=== PATIENT | male | born 1955 | race Caucasian/White ===

== ENCOUNTER 2017-08-30 11:52 | Inpatient (IN) ==
[2017-08-30] MEDS ORDERED: methylPREDNISolone 125 MG/2 ML VIAL IVP ONE (11:59)
[2017-08-30] MEDS ORDERED: Ipratropium/Albuterol Neb 3 ML IH ONE (11:59)
--- NOTE | 2017-08-30 11:59 | Emergency Department Note ---
Disposition Clinical Impression: Acute exacerbation of chronic obstructive airways disease Disposition: Admitted As Inpatient Condition: Fair Forms: ED Satisfaction Letter Time of Disposition: 14:33 SOB HPI - General Chief Complaint: ED Shortness of Breath/Dyspnea Stated Complaint: JUSTEN Time Seen by Provider: 08/30/17 11:58 Source: patient Limitations: no limitations Nursing Notes Reviewed: Yes Vital Signs Reviewed: Yes - History of Present Illness 62-year-old smoker history of hypertension, patient states he is not having shortness of breath for the last few days. Patient with worsening wheezing, productive cough fever chills low-grade at home. Patientshortness of breath, 2 /10 chest pain worse with deep inspiration. Pt Subjective Complaint: shortness of breath Severity: moderate Improves with: oxygen Worsens with: nothing Known history of: COPD Associated symptoms: Reports: cough, wheezing. Denies: chest pain, pain with inspiration, fever - Related Data Home Medications Medication Instructions Recorded Confirmed Albuterol Sulfate [Proair Hfa] 2 puff IH QID PRN 11/17/15 02/14/16 Alprazolam [Xanax] 2 mg PO TID 11/17/15 02/14/16 Albuterol Neb [Proventil Neb] 2.5 mg IH Q4H PRN 08/30/17 08/30/17 Budesonide/Formoterol 160/4.5 2 puff IH BID 08/30/17 08/30/17 [Symbicort 160/4.5] Allergies Allergy/AdvReac Type Severity Reaction Status Date / Time codeine AdvReac Nausea Verified 08/30/17 14:06 All systems ED: reviewed and negative except as stated. Review of Systems: As Per HPI Constitutional: Reports: fever, chills Eyes: Denies: eye pain ENT ED: Denies: ear pain Cardiovascular: Denies: chest pain, palpitations Respiratory: Reports: as per HPI, cough, dyspnea Gastrointestinal: Denies: abdominal pain, nausea Genitourinary: Denies: urgency, dysuria Musculoskeletal: Denies: back pain Integumentary: Denies: rash, abrasion Neurological: Denies: headache Psychiatric: Denies: anxiety Endocrine: Denies: fatigue Past Medical History - Past Medical History Attestation: Yes The following information was validated with the patient. Source: patient Medical history: Reports: COPD, hypertension, other Surgical history: Reports: other (Lumbar laminectomy) Psychiatric history: Reports: depression - Social History Smoking Status: Current every day smoker Smokeless Tobacco Status: No Alcohol use: Reports: none Drug use: Reports: none Physical Exam Constitutional: Exertional and conversational dyspnea,02 93% on room air Eyes: PERRLA, sclera anicteric ENT & Mouth: MMM Neck: normal inspection, neck is supple Resp: Coarse inspiratory and expiratory wheezes CV: RRR, no m/g/r GI: normal inspection, soft, no guarding or rigidity Neuro: A&O3, CNII-XII grossly intact, RAMOS Skin: on limited exam, skin intact with no rashes or lesions - General Limitations: no limitations General appearance: alert, in no apparent distress Course Course Narrative: 62-year-old male with COPD exacerbation, diffuse inspiratory and expiratory wheezes do nebs 3, Solu-Medrol, basic labs CBC BMP EKG troponin, EKG showsischemic changes, tachycardia. - Reevaluation(s) Reevaluation #1: Patient with no improvement after breathing treatment since and albuterol inhalers, still with diffuse inspiratory expiratory wheezes, admitted to Dr.Al Bui Time: 14:10 Vital Signs Temperature 98.2 F 08/30/17 11:53 Pulse Rate 91 08/30/17 11:53 Respiratory Rate 22 08/30/17 11:53 Blood Pressure 154/90 08/30/17 11:53 O2 Sat by Pulse Oximetry 95 08/30/17 11:53 Temperature 98.2 F 08/30/17 11:53 Pulse Rate 20 08/30/17 13:00 Respiratory Rate 20 08/30/17 13:23 Blood Pressure 153/81 08/30/17 13:00 O2 Sat by Pulse Oximetry 97 08/30/17 13:23 Oxygen Delivery Oxygen Delivery Room Air Shortness of Breath/Dyspnea - Differential Diagnosis Likely: acute exacerbation of chronic obstructive airways disease, congestive heart failure, pneumonia - Medical Records Medical records reviewed: Yes I reviewed the patient's medical records. - Lab Data Lab results reviewed: Yes I reviewed the patient's lab results. Result diagrams: 08/30/17 12:12 08/30/17 12:12 Lab Results 08/30/17 08/30/17 08/30/17 Range/Units 12:12 12:12 12:12 WBC 8.3 (4.3-11.1) K/mcL RBC 4.83 (4.19-5.50) M/mcL Hgb 15.0 (12.9-16.9) g/dL Hct 45.7 (37.5-50.1) % MCV 94.6 (83.0-100.0) fL MCH 31.1 (28.0-33.3) pg MCHC 32.8 (31.6-35.5) g/dL RDW 13.7 (11.5-14.5) % Plt Count 135 L (140-400) K/mcL MPV 10.8 (9.4-12.4) fL Immature Gran % 0.2 (0-4) % Seg Neutrophils % 66.0 % Lymphocytes % 23.1 % Monocytes % 7.8 % Eosinophils % 2.4 % Basophils % 0.5 % Neutrophils # 5.5 (1.6-8.9) K/mcL Lymphocytes # 1.9 (0.6-4.6) K/mcL Monocytes # 0.7 (0.0-1.3) K/mcL Eosinophils # 0.2 (0.0-0.6) K/mcL Basophils # 0.0 (0.0-0.2) K/mcL Platelet Estimate Slight Decrease L (Normal) Sodium 136 (136-145) mEq/L Potassium 3.9 (3.5-5.1) mEq/L Chloride 104 (98-107) mEq/L Carbon Dioxide 24 (23-29) mEq/L BUN 14 (8-23) mg/dL Creatinine 0.79 (0.70-1.30) mg/dL Est GFR ( Amer) > 60 (> 60) Est GFR (Non-Af Amer) > 60 (> 60) BUN/Creatinine Ratio 18 (6-26) Glucose 147 H (70-105) mg/dL Calculated Osmolality 285 (280-300) Calcium 9.4 (8.6-10.3) mg/dL Troponin I < 0.03 (< 0.04) ng/mL Specimen Rejected 08/30/17 Range/Units 13:05 WBC (4.3-11.1) K/mcL RBC (4.19-5.50) M/mcL Hgb (12.9-16.9) g/dL Hct (37.5-50.1) % MCV (83.0-100.0) fL MCH (28.0-33.3) pg MCHC (31.6-35.5) g/dL RDW (11.5-14.5) % Plt Count (140-400) K/mcL MPV (9.4-12.4) fL Immature Gran % (0-4) % Seg Neutrophils % % Lymphocytes % % Monocytes % % Eosinophils % % Basophils % % Neutrophils # (1.6-8.9) K/mcL Lymphocytes # (0.6-4.6) K/mcL Monocytes # (0.0-1.3) K/mcL Eosinophils # (0.0-0.6) K/mcL Basophils # (0.0-0.2) K/mcL Platelet Estimate (Normal) Sodium (136-145) mEq/L Potassium (3.5-5.1) mEq/L Chloride (98-107) mEq/L Carbon Dioxide (23-29) mEq/L BUN (8-23) mg/dL Creatinine (0.70-1.30) mg/dL Est GFR ( Amer) (> 60) Est GFR (Non-Af Amer) (> 60) BUN/Creatinine Ratio (6-26) Glucose (70-105) mg/dL Calculated Osmolality (280-300) Calcium (8.6-10.3) mg/dL Troponin I (< 0.04) ng/mL Specimen Rejected Hemolyzed - Radiology Data Radiology results reviewed: Yes I reviewed the patient's radiology results. Chest X-Ray 08/30/17 11:59 IMPRESSION: No evidence of acute cardiopulmonary disease. D/ / Brown Spangler MD / Brown Spangler MD Interpreting Provider: Brown Spangler MD - EKG Data EKG attestation: Yes I reviewed and interpreted this EKG. EKG shows normal: Reports: sinus rhythm Rate: Reports: normal Rhythm: Reports: NSR [place]/QRS: Reports: RBBB Interpretation: Reports: no acute changes - Core Measures AMI Core Measures Followed: No Attestation Statement - Attestation Attestation: I examined this patient and my medical decision-making was reviewed with the Resident Physician. I agree with the documented findings, disposition and treatment plan as described except to the extent set forth below. Hput-hn-rani time provided in conjunction with the resident physician Dr. Garzon Patient presents with dyspnea. He is tachypneic and visibly dyspneic on exam. He uses an albuterol inhaler at home but is not oxygen dependent. I suspect COPD
[2017-08-30 12:26] LABS: Basophils % 0.5 %; Eosinophils # 0.2 K/mcL (0.0-0.6); Eosinophils % 2.4 %; Hematocrit 45.7 % (37.5-50.1); Immature Granulocytes % 0.2 % (0-4); Lymphocytes # 1.9 K/mcL (0.6-4.6); Lymphocytes % 23.1 %; Mean Corpuscular HGB Conc 32.8 g/dL (31.6-35.5); Mean Corpuscular Hemoglobin 31.1 pg (28.0-33.3); Mean Corpuscular Volume 94.6 fL (83.0-100.0); Mean Platelet Volume 10.8 fL (9.4-12.4); Monocytes # 0.7 K/mcL (0.0-1.3); Monocytes % 7.8 %; Neutrophils # 5.5 K/mcL (1.6-8.9); Platelet Count 135 K/mcL (140-400); Red Blood Count 4.83 M/mcL (4.19-5.50); Red Cell Distribution Width 13.7 % (11.5-14.5)
[2017-08-30 12:57] LABS: Platelet Estimate Slight Decrease (Normal)
[2017-08-30 13:02] LABS: BUN/Creatinine Ratio 18 (6-26); Blood Urea Nitrogen 14 mg/dL (8-23); Calcium 9.4 mg/dL (8.6-10.3); Carbon Dioxide 24 mEq/L (23-29); Chloride 104 mEq/L (98-107); Glucose 147 mg/dL (70-105); Osmolality,Calculated 285 (280-300); Potassium 3.9 mEq/L (3.5-5.1); Sodium 136 mEq/L (136-145); eGFR For African Americans > 60 (> 60); eGFR For Non-African Americans > 60 (> 60)
[2017-08-30] MEDS ORDERED: Albuterol 2.5 MG/3 ML NEBULIZER IH ONE (13:11)
--- NOTE | 2017-08-30 13:54 | Internal Med History&Physical ---
Date of Encounter: 08/30/17 Time of Encounter: 13:52 Assessment and Plan (1) Acute respiratory failure with hypoxia Current visit: Yes Status: Acute Admitted to hospitalist. Will treat for COPD exacerbation as below. Given back pain with inspiration and recent travel to [place], will check d-dimers. CTA if elevated to r/o PE. (2) COPD exacerbation Current visit: Yes Status: Acute IV Solu-Medrol 60 mg every 8 hours. Scheduled nebulizers. Wean down oxygen tolerated. Empiric Levaquin. (3) Anxiety Current visit: Yes Status: Acute Resume on anti-anxiety meds. (4) DVT prophylaxis Current visit: No Status: Acute Heparin subcutaneous Internal Medicine - H&P: HPI Chief complaint: shortness of breath Admitted From: Emergency Dept Plans for Post Hospital Care: Home History of present illness: Mr. Sands is a 62 year old male anxiety and COPD not on O2 who presents with dyspnea. Been dealing with this for 4 days or so. Subjective fevers and chills. Patient was noted to be tachypneic and having conversational dyspnea with significant audible wheezes. O2 sats were 90% on room air put on supplemental oxygen. Laboratory workup was mostly unremarkable. Denies headache, blurry vision, chest pain, nausea, vomiting, abdominal pain, urinary symptoms, or neurological symptoms. Chest x-ray was unremarkable in the ED. The patient was given 3 in the ED. Given IV Solu-Medrol as well. Still with significant dyspnea. Otherwise hemodynamically stable. Being admitted for COPD exacerbation. I saw the patient on the floor and he told me that he has been dealing with upper back pain worse with breathing. Took a bus trip to his relative in [place] about a month ago. Past Med Surg Social Fam HX - Past Medical History Medical history: COPD, hypertension, other Psychiatric history: depression - Past Surgical History Surgical History: other (Lumbar laminectomy) - Social History Smoking Status: Current every day smoker Smokeless Tobacco Status: No Alcohol use: none Drug use: none - Family History Mother Living Status: Hx Family Cardiac Disorders: Yes Internal Medicine - H&P: Meds Albuterol Sulfate [Proair Hfa] 2 puff IH QID PRN 11/17/15 [History] Alprazolam [Xanax] 2 mg PO TID 11/17/15 [History] Albuterol Neb [Proventil Neb] 2.5 mg IH Q4H PRN 08/30/17 [History] Budesonide/Formoterol 160/4.5 [Symbicort 160/4.5] 2 puff IH BID 08/30/17 [ History] 3 Allergy/AdvReac Type Severity Reaction Status Date / Time codeine AdvReac Nausea Verified 08/30/17 14:06 All Systems PM: A 10-system review of systems was performed and is negative for pertinent findings except as documented above in the HPI. Review of systems: All systems reviewed are negative except as mentioned above - Constitutional Vitals: Temp Pulse Resp BP Pulse Ox 98.2 F 20 20 153/81 97 08/30/17 11:53 08/30/17 13:00 08/30/17 13:23 08/30/17 13:00 08/30/17 13:23 Exam: GEN: NAD HEENT: AT, NC, No cyanosis, oral mucosa is moist, No JVD Lymphatics: No lymphadenoapthy Eyes: Extrocular muscles intact, anicteric CVS:RRR. S1, S2, No m/r/g RESP: Diminished with anterior and posterior expiratory wheezes. ABD: Soft, NT, ND, +BS EXT: No edema, No rashes, 2+ DP NEURO: Nonfocal, CN II-XII intact, No focal motor or sensory deficits Psych: Cooperative, Not anxious or depressed Internal Med - H&P Results - Labs CBC & Chem 7: 08/30/17 12:12 08/30/17 12:12
[2017-08-30] MEDS ORDERED: Naloxone 0.4 MG/ML INJ IVP PRN (13:56)
[2017-08-30] MEDS ORDERED: Acetaminophen 325 MG TABLET PO PRN (13:56)
[2017-08-30] MEDS: methylPREDNISolone 125 MG/2 ML VIAL IVP SCH ×2 (14:54→23:19)
[2017-08-30] MEDS: Levofloxacin 500 MG/100 ML 500 MG/100 ML BAG IVPB SCH (14:54)
[2017-08-30] MEDS: *HR* Heparin 5,000 UNIT/ML VIAL SQ SCH ×2 (14:54→20:57)
[2017-08-30] MEDS: Ipratropium/Albuterol Neb 3 ML IH SCH ×2 (16:33→21:48)
[2017-08-30] MEDS: *HR* HYDROcodone/Acet 5/325 mg TABLET PO PRN ×2 (17:22→23:19)
[2017-08-30] MEDS: ALPRAZolam 1 MG TABLET PO PRN ×2 (17:40→23:19)
[2017-08-30] MEDS ORDERED: Ketorolac 15 MG/ML VIAL IVP ONE (18:50)
[2017-08-31] MEDS: *HR* HYDROcodone/Acet 5/325 mg TABLET PO PRN ×3 (03:18→13:41)
[2017-08-31] MEDS: Ipratropium/Albuterol Neb 3 ML IH SCH ×4 (04:07→21:36)
[2017-08-31 04:58] LABS: Basophils % 0.1 %; Hemoglobin 13.5 g/dL (12.9-16.9); Immature Granulocytes % 0.3 % (0-4); Lymphocytes # 0.8 K/mcL (0.6-4.6); Lymphocytes % 6.9 %; Mean Corpuscular HGB Conc 33.8 g/dL (31.6-35.5); Mean Corpuscular Hemoglobin 31.3 pg (28.0-33.3); Mean Corpuscular Volume 92.8 fL (83.0-100.0); Mean Platelet Volume 11.1 fL (9.4-12.4); Monocytes # 0.4 K/mcL (0.0-1.3); Monocytes % 3.2 %; Neutrophils # 10.7 K/mcL (1.6-8.9); Platelet Count 138 K/mcL (140-400); Red Blood Count 4.31 M/mcL (4.19-5.50); Red Cell Distribution Width 13.1 % (11.5-14.5); Segmented Neutrophils % 89.5 %
[2017-08-31 05:26] LABS: BUN/Creatinine Ratio 17 (6-26); Blood Urea Nitrogen 14 mg/dL (8-23); Calcium 9.5 mg/dL (8.6-10.3); Carbon Dioxide 27 mEq/L (23-29); Chloride 101 mEq/L (98-107); Glucose 347 mg/dL (70-105); Magnesium 1.8 mg/dL (1.6-2.6); Osmolality,Calculated 296 (280-300); Potassium 3.2 mEq/L (3.5-5.1); Sodium 136 mEq/L (136-145); eGFR For African Americans > 60 (> 60); eGFR For Non-African Americans > 60 (> 60)
[2017-08-31] MEDS: ALPRAZolam 1 MG TABLET PO PRN ×3 (05:44→21:43)
[2017-08-31] MEDS: *HR* Heparin 5,000 UNIT/ML VIAL SQ SCH ×3 (05:44→21:45)
[2017-08-31] MEDS: methylPREDNISolone 125 MG/2 ML VIAL IVP SCH ×2 (09:26→15:31)
[2017-08-31] MEDS: Levofloxacin 500 MG/100 ML 500 MG/100 ML BAG IVPB SCH (13:42)
--- NOTE | 2017-08-31 14:51 | Internal Med Progress Note ---
Date of Encounter: 08/31/17 Time of Encounter: 14:49 - Assessment and plan (1) Acute respiratory failure with hypoxia Current Visit: Yes Status: Acute Assessment and plan: does not wear oxygen at home. Requiring supplemental O2 to maintain adequate oxygen saturation. Secondary to COPD exacerbation. Chest CTA negative for pulmonary embolism. Continue treating underlying causes. Wean O2 as able. (2) COPD exacerbation Current Visit: Yes Status: Acute Assessment and plan: per hx. Current smoker. Symptomatic with shortness of breath, cough and wheezing. CXR without infiltrate/consolidation. Initially treated with IV Levaquin; changed to azithromycin/ceftriaxone for anti-inflammatory properties. Continue IV steroids, DuoNeb's. Resp PCR, urinary antigens pending (3) Chest pain Current Visit: Yes Status: Acute Assessment and plan: reported on 08/31/17 exam. No known CAD. Suspect secondary to COPD exacerbation however no previous ischemic evaluation. EKG with right bundle branch block. Cycle troponins, check echo and stress test. Qualifiers: Chest pain type: unspecified Qualified Code(s): R07.9 - Chest pain, unspecified (4) Anxiety Current Visit: Yes Status: Acute Assessment and plan: per hx. Cont home xanax (5) DVT prophylaxis Current Visit: No Status: Acute Assessment and plan: heparin - Subjective Interval history: Seen and examined at bedside, patient is new to me. Information obtained from chart review and patient report. Still with c/o SOB and now with c/o CP. Describes CP as sharp, located to midsternum. Nothing makes better or worse. Chest pain does not radiate. - Constitutional Vitals: Temp Pulse Resp BP Pulse Ox 98.0 F 83 16 128/72 94 08/31/17 11:30 08/31/17 11:30 08/31/17 11:30 08/31/17 11:30 08/31/17 11:30 General appearance: Present: mild distress, A&O X 3 - Head Head exam: Present: atraumatic, normocephalic - Eye Eye exam: Present: PERRL, conjuntiva pink, sclera anicteric Pupils: Present: PERRL - Neck Neck exam general surgery: Present: supple, trachea midline. Absent: lymphadenopathy - Respiratory Respiratory exam: Present: CTAB, rhonchi, wheezes. Absent: accessory muscle use , rales - Cardiovascular Cardiovascular exam: Present: RRR, +S1, +S2. Absent: diastolic murmur, gallop, rubs, systolic murmur - GI/Abdominal GI/Abdominal exam: Present: normal bowel sounds, soft, no peritoneal signs. Absent: distended, tenderness - Extremities Exam Extremities exam: Present: warm, radial pulses palpable and symmetrical. Absent : calf tenderness, cyanotic, pedal edema - Neurological Exam Neurological exam: Present: CN II-XII intact, oriented X3, no focal deficits. Absent: pronater drift, facial droop, speech deficit - Skin Skin exam: Present: dry, intact Internal Medicine: Result - Labs CBC & Chem 7: 08/31/17 04:13 08/31/17 04:13 Labs: Short CBC 08/31/17 Range/Units 04:13 WBC 12.0 H (4.3-11.1) K/mcL Hgb 13.5 D (12.9-16.9) g/dL Hct 40.0 (37.5-50.1) % Plt Count 138 L (140-400) K/mcL Neutrophils # 10.7 H (1.6-8.9) K/mcL BMP 08/31/17 04:13 Sodium 136 Potassium 3.2 L Chloride 101 Carbon Dioxide 27 BUN 14 Creatinine 0.83 Glucose 347 H Calcium 9.5 Cardiac Enzymes 08/31/17 Range/Units 13:16 Troponin I < 0.03 (< 0.04) ng/mL - ABG Interpretation ABG results: PT/INR, D-dimer D-Dimer 766 ng/mLFEU (0-500) H 08/30/17 14:48 - Impressions Impressions Chest CTA 08/30/17 15:48 IMPRESSION: 1. No evidence for acute pulmonary embolism. 2. Scattered calcified pulmonary nodules up to a cm size compatible granulomatous disease. D/ / Lorenzo Smiley MD / Lorenzo Smiley MD Interpreting Provider: Lorenzo Smiley MD Consult Discharge Plan - Plan Referrals: Lukas Vallecillo MD [Primary Care Provider] -
[2017-08-31] MEDS: Azithromycin 500 MG in D5% in Water 250 ML IVPB SCH (15:30)
[2017-08-31] MEDS: cefTRIAXone 1,000 MG in Water for inj. (sterile) 20 ML 10 ML IVP SCH (15:30)
[2017-08-31 18:30] LABS: Adenovirus Not Detected (Not Detect); Bordetella Pertussis Not Detected (Not Detect); Chlamydophila pneumoniae Not Detected (Not Detect); Coronavirus 229E Not Detected (Not Detect); Coronavirus HKU1 Not Detected (Not Detect); Coronavirus NL63 Not Detected (Not Detect); Coronavirus OC43 Not Detected (Not Detect); Human Metapneumovirus Not Detected (Not Detect); Human Rhinovirus/Enterovirus Not Detected (Not Detect); Influenza A Subtype 2009 H1 Not Detected (Not Detect); Influenza A Untypeable Not Detected (Not Detect); Influenza B Not Detected (Not Detect); Parainfluenza Virus 1 Not Detected (Not Detect); Parainfluenza Virus 2 Not Detected (Not Detect); Parainfluenza Virus 3 Not Detected (Not Detect); Parainfluenza Virus 4 Not Detected (Not Detect); Respiratory Syncytial Virus Not Detected (Not Detect)
[2017-08-31 18:31] LABS: Mycoplasma pneumoniae Not Detected (Not Detect)
[2017-08-31] MEDS: *HR* OxyCODONE/APAP 5/325 TABLET PO PRN (21:42)
[2017-09-01] MEDS: methylPREDNISolone 125 MG/2 ML VIAL IVP SCH ×3 (00:47→15:33)
[2017-09-01 01:41] LABS: Red Blood Count 4.11 M/mcL (4.19-5.50)
[2017-09-01 01:42] LABS: Hematocrit 38.3 % (37.5-50.1); Mean Corpuscular HGB Conc 33.9 g/dL (31.6-35.5); Mean Corpuscular Hemoglobin 31.6 pg (28.0-33.3); Mean Corpuscular Volume 93.2 fL (83.0-100.0); Mean Platelet Volume 11.8 fL (9.4-12.4); Platelet Count 154 K/mcL (140-400); Red Cell Distribution Width 13.4 % (11.5-14.5)
[2017-09-01 02:01] LABS: BUN/Creatinine Ratio 19 (6-26); Blood Urea Nitrogen 17 mg/dL (8-23); Carbon Dioxide 27 mEq/L (23-29); Chloride 105 mEq/L (98-107); Potassium 4.3 mEq/L (3.5-5.1); Sodium 137 mEq/L (136-145); eGFR For African Americans > 60 (> 60)
[2017-09-01 02:02] LABS: Calcium 9.5 mg/dL (8.6-10.3); Glucose 187 mg/dL (70-105); Osmolality,Calculated 290 (280-300); eGFR For Non-African Americans > 60 (> 60)
[2017-09-01] MEDS: Ipratropium/Albuterol Neb 3 ML IH SCH ×2 (04:03→11:30)
[2017-09-01] MEDS: ALPRAZolam 1 MG TABLET PO PRN ×2 (05:36→11:58)
[2017-09-01] MEDS: *HR* Heparin 5,000 UNIT/ML VIAL SQ SCH ×2 (05:36→14:02)
[2017-09-01] MEDS: *HR* OxyCODONE/APAP 5/325 TABLET PO PRN ×2 (05:36→11:58)
[2017-09-01] MEDS: cefTRIAXone 1,000 MG in Water for inj. (sterile) 20 ML 10 ML IVP SCH (07:31)
[2017-09-01] MEDS ORDERED: 0.9 % Sodium Chloride 1,000 ML IVC ONE (10:43)
--- NOTE | 2017-09-01 13:31 | Discharge Summary ---
- NOTES TO OUTPATIENT PROVIDER Notes to Outpatient Provider: WBC old and lactic acid elevated. He did stay for IV fluid bolus and IV ATB however decided to leave AMA. He was given Rx for ATB and steroids. Strongly encouraged follow-up with PCP within 24 hours. Left before cardiac workup completed; recommend outpatient stress test. Orders not resulted at time of discharge: Pending orders 08/31/17 12:18 ECG 12 lead ECG [ECG] Routine 08/31/17 12:24 SP pharm nuclear stress Routine 08/31/17 12:25 NM gina perf SPECT multi [NM] Routine 08/31/17 13:17 EV echocardiogram Routine Date of Encounter: 09/01/17 Time of Encounter: 13:28 - Discharge Diagnosis (1) COPD exacerbation Priority: Primary Status: Acute Comments: per hx. Current smoker. Symptomatic with shortness of breath, cough and wheezing. CXR without infiltrate/consolidation. Initially treated with IV Levaquin; changed to azithromycin/ceftriaxone for anti-inflammatory properties. Resp PCR, urinary antigens negative. Sx's somewhat improved with IV ATB, steroids and DuoNeb's however not back to baseline. Strongly encouraged patient to stay for further IV steroids, ATB's however he declined and left AMA. Gave Rx for steroid taper and Levaquin. Strongly advised to follow-up with PCP within the next 24 hours. (2) Chest pain Priority: Primary Status: Acute Comments: reported on 08/31/17 exam. No known CAD. Suspect secondary to COPD exacerbation however no previous ischemic evaluation. Serial troponin negative. EKG with right bundle branch block. Echo and stress test ordered however patient left AMA before completed. Strongly encouraged him to follow- up with PCP. Qualifiers: Chest pain type: unspecified Qualified Code(s): R07.9 - Chest pain, unspecified (3) Acute respiratory failure with hypoxia Priority: Primary Status: Resolved Comments: does not wear oxygen at home. Requiring supplemental O2 to maintain adequate oxygen saturation. Chest CTA negative for pulmonary embolism. Secondary to COPD exacerbation. Adequately oxygenating on room air at time of discharge. Resolved (4) Anxiety Priority: Secondary Status: Chronic Comments: per hx. Cont home [facility] course: Mr. Sands is a 62 year old male with past medical history COPD who presented to [facility] on 08/30/2017 with complaints of shortness of breath. He was found to be in acute COPD exacerbation. Symptoms minimally improved with IV ATB and steroids. Of note his WBC doubled and he had an elevated lactic acid; this was treated with IV bolus. Patient left AMA despite multiple attempts and encouragement to get him to stay inpatient for further treatment. He was sent home with Rx for ATB and steroids. Strongly encouraged follow-up with his PCP within the next 24 hours. He was advised to return to the emergency room if shortness of breath and/or chest pain recurred/worsen. He remains at high risk for readmission, sepsis, respiratory failure and even . Patient verbalized understanding and still left AMA Discharge discussed with: patient - Time Spent with Patient Total time spent providing and/or coordinating discharge services: - Discharge Medications Prescriptions: levoFLOXacin [Levaquin] 750 mg PO DAILY #5 tablet predniSONE [PredniSONE] 40 mg PO DAILY #10 tablet Home Medications: Albuterol Sulfate [Proair Hfa] 2 puff IH QID PRN 11/17/15 [History] Alprazolam [Xanax] 2 mg PO TID 11/17/15 [History] Albuterol Neb [Proventil Neb] 2.5 mg IH Q4H PRN 08/30/17 [History] Budesonide/Formoterol 160/4.5 [Symbicort 160/4.5] 2 puff IH BID 08/30/17 [ History] levoFLOXacin [Levaquin] 750 mg PO DAILY #5 tablet 09/01/17 [Rx] predniSONE [PredniSONE] 40 mg PO DAILY #10 tablet 09/01/17 [Rx] Allergies/Adverse Reactions: 3 Allergy/AdvReac Type Severity Reaction Status Date / Time codeine AdvReac Nausea Verified 08/30/17 14:06 Date of admission: 08/30/17 13:56 Primary care physician: Lukas Vallecillo MD Discharging clinician: Christi Mena Anticipated date of discharge: 09/01/17 - Constitutional Vitals: Temp Pulse Resp BP Pulse Ox 97.6 F 73 16 131/75 93 09/01/17 07:39 09/01/17 07:39 09/01/17 07:39 09/01/17 07:39 09/01/17 07:39 General appearance: Present: mild distress, A&O X 3 - Head Head exam: Present: atraumatic, normocephalic - Eye Eye exam: Present: PERRL, conjuntiva pink, sclera anicteric Pupils: Present: PERRL - Neck Neck exam general surgery: Present: supple, trachea midline. Absent: lymphadenopathy - Respiratory Respiratory exam: Present: CTAB, rhonchi, wheezes. Absent: accessory muscle use - Cardiovascular Cardiovascular exam: Present: RRR, +S1, +S2. Absent: diastolic murmur, gallop, rubs, systolic murmur - GI/Abdominal GI/Abdominal exam: Present: normal bowel sounds, soft, no peritoneal signs. Absent: distended, tenderness - Extremities Exam Extremities exam: Present: warm, radial pulses palpable and symmetrical. Absent : calf tenderness, cyanotic, pedal edema - Neurological Exam Neurological exam: Present: CN II-XII intact, oriented X3, no focal deficits. Absent: pronater drift, facial droop, speech deficit - Skin Skin exam: Present: dry, intact - Patient Status Disposition: Left Against Medical Advice Condition: Fair Functional capacity at discharge: independent ambulation Overall status at discharge: patient is progressing back to baseline - Discharge Instructions Instructions: Chronic Obstructive Pulmonary Disease (DC), Levofloxacin (By mouth), Prednisone (By mouth) Follow Up With: Lukas Vallecillo MD [Primary Care Provider] - - Diet and Activity Activity: increase activity as tolerated Diet: advance to your usual diet
[2017-09-01] MEDS: Azithromycin 500 MG in D5% in Water 250 ML IVPB SCH (14:01)
[2017-09-01 14:05] LABS: Hematocrit 36.8 % (37.5-50.1); Hemoglobin 12.6 g/dL (12.9-16.9); Mean Corpuscular HGB Conc 34.2 g/dL (31.6-35.5); Mean Corpuscular Hemoglobin 31.7 pg (28.0-33.3); Mean Corpuscular Volume 92.5 fL (83.0-100.0); Mean Platelet Volume 10.9 fL (9.4-12.4); Platelet Count 150 K/mcL (140-400); Red Blood Count 3.98 M/mcL (4.19-5.50); Red Cell Distribution Width 13.6 % (11.5-14.5)
[2017-09-01 14:06] VITALS: BP 155/80
--- NOTE | 2017-09-02 06:23 | Electrocardiograph Report ---
[employer] Test Date: 2017-08-30 Pat Name: Trey Sands Department: 103 Room: 3B44 Gender: M Replenishment Buyer: MSC : [id number] Requested By: Darrius Garzon Order Number: [id number] Reading MD: Kit Foreman DO Measurements Intervals [place] Rate: 75 P: 70 CA: 130 QRS: 72 QRSD: 141 T: 35 QT: 379 QTc: 408 Interpretive Statements SINUS RHYTHM WITH MARKED RHYTHM IRREGULARITY, POSSIBLE NON-CONDUCTED PAC, SA BLOCK, AV BLOCK, OR SINUS PAUSE RIGHT BUNDLE BRANCH BLOCK [120+ ms QRS DURATION, UPRIGHT V1, 40+ ms S IN I/aVL/V4/V5/V6] Electronically Signed On 09-02-2017 6:22:27 EST by Kit Foreman DO
--- NOTE | 2017-09-03 18:20 | Electrocardiograph Report ---
[address] [place], [place] [address] Test Date: 2017-08-31 Pat Name: Trey Sands Department: 113 Room: 3B44 Gender: M Oncology Consultant: : [id number] Requested By: Christi Mena Order Number: [id number] Reading MD: Fredis Grant Measurements Intervals [place] Rate: 83 P: 70 MT: 138 QRS: 63 QRSD: 138 T: 38 QT: 388 QTc: 428 Interpretive Statements SINUS RHYTHM RIGHT BUNDLE BRANCH BLOCK Electronically Signed On 09-03-2017 18:18:40 EST by Fredis Grant
== END 2017-09-01 15:43 | disposition left against medical advice (07) | DRG 190 ==
LOC: EMEROO 11:52 → 3BNU 11:52
PROVIDERS: ADMIT Family Medicine; ATTEND Registered Nurse

== ENCOUNTER 2018-05-26 12:25 | Observation (INO) ==
[2018-05-26 13:13] LABS: Basophils % 0.3 %; Eosinophils # 0.3 K/mcL (0.0-0.6); Eosinophils % 3.2 %; Hematocrit 43.5 % (37.5-50.1); Hemoglobin 14.7 g/dL (12.9-16.9); Immature Granulocytes % 0.3 % (0-4); Lymphocytes # 1.7 K/mcL (0.6-4.6); Lymphocytes % 19.2 %; Mean Corpuscular HGB Conc 33.8 g/dL (31.6-35.5); Mean Corpuscular Hemoglobin 31.1 pg (28.0-33.3); Mean Platelet Volume 10.3 fL (9.4-12.4); Monocytes # 0.7 K/mcL (0.0-1.3); Monocytes % 8.4 %; Platelet Count 129 K/mcL (140-400); Red Blood Count 4.73 M/mcL (4.19-5.50); Red Cell Distribution Width 13.7 % (11.5-14.5); Segmented Neutrophils % 68.6 %
[2018-05-26 13:30] LABS: BUN/Creatinine Ratio 12 (6-26); Blood Urea Nitrogen 10 mg/dL (8-23); Carbon Dioxide 32 mEq/L (23-29); Chloride 102 mEq/L (98-107); Glucose 137 mg/dL (70-105); Osmolality,Calculated 289 (280-300); Potassium 3.7 mEq/L (3.5-5.1); Sodium 139 mEq/L (136-145); eGFR For Non-African Americans > 60 (> 60)
[2018-05-26 13:31] LABS: Troponin I < 0.03 ng/mL (< 0.04)
[2018-05-26] MEDS ORDERED: Ipratropium/Albuterol Neb 3 ML IH ONE (13:33)
[2018-05-26] MEDS ORDERED: predniSONE 20 MG TABLET PO ONE (13:33)
--- NOTE | 2018-05-26 13:56 | Emergency Department Note ---
Disposition Clinical Impression: COPD exacerbation Disposition: Admitted As Inpatient Condition: Good Referrals: Lukas Vallecillo MD [Primary Care Provider] - Forms: ED Satisfaction Letter Time of Disposition: 14:21 General Adult HPI - General Chief complaint: ED Chest Pain Stated complaint: CP Hx Of Pneumonia Time Seen by Provider: 05/26/18 13:11 Source: patient Mode of arrival: ambulatory Limitations: no limitations Nursing Notes Reviewed: Yes Vital Signs Reviewed: Yes - History of Present Illness HPI Narrative: 62-year-old male with significant past medical history of COPD not currently on any oxygen presenting to the emergency department chief complaint of right-sided lung pain. Patient states he has had worsening shortness of breath and right- sided lung pain for the past 3 days. Denies any fevers, chest pain at home. Patient has been using his albuterol nebulizer treatments 4 times a day as prescribed. He states he feels that there is congestion in his lungs but he cannot bring it up. Patient became concerned when it was worsening as his last admission was due to similar symptoms and he wanted to be further evaluated. Pain Scale: 9 - Related Data Home Medications Medication Instructions Recorded Confirmed Albuterol Sulfate [Proair Hfa] 2 puff IH QID PRN 11/17/15 08/30/17 Alprazolam [Xanax] 2 mg PO TID 11/17/15 08/30/17 Albuterol Neb [Proventil Neb] 2.5 mg IH Q4H PRN 08/30/17 08/30/17 Budesonide/Formoterol 160/4.5 2 puff IH BID 08/30/17 08/30/17 [Symbicort 160/4.5] Previous Rx's Medication Instructions Recorded HYDROcodone/Acet 5/325 mg [[place] 1 tab PO Q8HR PRN 4 Days #12 tab 11/03/17 5-325 mg] Clindamycin HCl 450 mg PO TID 7 Days capsule 12/30/17 Cefdinir [Omnicef] 300 mg PO BID #28 capsule 03/08/18 Oxycodone HCl/Acetaminophen 1 each PO Q6HR 3 Days #8 tablet 03/08/18 [Percocet 5-325 mg Tablet] Allergies Allergy/AdvReac Type Severity Reaction Status Date / Time codeine AdvReac Nausea Verified 03/08/18 11:39 All systems ED: reviewed and negative except as stated. Constitutional: Denies: fever, chills, weakness Eyes: Reports: as per HPI ENT ED: Reports: as per HPI Cardiovascular: Reports: dyspnea on exertion. Denies: chest pain, palpitations Respiratory: Reports: cough, dyspnea, wheezes. Denies: hemoptysis, stridor Gastrointestinal: Denies: abdominal pain, nausea, vomiting Genitourinary: Reports: as per HPI Musculoskeletal: Reports: as per HPI Integumentary: Reports: as per HPI Neurological: Denies: weakness, numbness, paresthesias Psychiatric: Reports: as per HPI Endocrine: Reports: as per HPI Hematological/Lymphatic: Reports: as per HPI Allergic/Immunologic: Reports: as per HPI Past Medical History - Past Medical History Attestation: Yes The following information was validated with the patient. Medical history: Reports: COPD Surgical history: Reports: other (Lumbar laminectomy) Psychiatric history: Reports: depression - Social History Smoking Status: Current every day smoker Smokeless Tobacco Status: No Alcohol use: Reports: none Drug use: Reports: none Physical Exam - General Limitations: no limitations General appearance: alert, in no apparent distress - Head Head exam: atraumatic, normocephalic, other (Circular abscess noted on the left frontal area, fluctuance noted. No active drainage. No streaking) - Eye Eye exam: Present: normal appearance. Absent: scleral icterus, conjunctival injection - ENT ENT exam: normal exam, mucous membranes moist - Neck Neck exam: Present: normal inspection, full ROM. Absent: tenderness, m eningismus - Chest Chest inspection: Present: normal inspection, symmetric chest wall rise. Absent: tenderness, rash - Respiratory Respiratory exam: Present: other (Inspiratory and expiratory wheezing throughout) - Cardiovascular Cardiovascular exam: Present: regular rate, normal rhythm, normal heart sounds - Abdominal Exam Abdominal exam: Present: soft, Non-Tender. Absent: distention, guarding, rebound - Extremities Exam Extremities exam: Present: normal inspection, full ROM - Neurological Exam Neurological exam: Present: alert, oriented X3 - Psychiatric Psychiatric exam: Present: normal affect, normal mood - Skin Skin exam: Present: warm Course Course Narrative: 62-year-old male presenting for shortness of breath and right lung pain. Patient is alert and oriented 3 and hemodynamically stable in the room. On physical exam patient has inspiratory and expiratory wheezing. Patient also has small abscess located on the left frontal area. Patient's laboratory analysis ordered from triage along with chest x-ray. Both are pending at this time. We will wait for labs and x-ray to be completed to determine disposition. We will provide him with 3 [id number] DuoNeb's and oral steroids. Patient agrees with this plan. - Reevaluation(s) Reevaluation #1: After breathing treatments patient is feeling moderately better. Patient states he does not fill comfortable going home because he has been using is breathing treatments and prescribed inhalers at home without any relief. Patient's laboratory analysis unchanged from baseline. X-ray shows no acute consolidation. At this time will plan to admit the patient for COPD exacerbation. Patient received steroids and DuoNeb treatments. Patient remains alert and oriented 3 and hemodynamically stable. Patient agrees with this plan. I spoke with the hospitalist classification clerk Dr. Vargas who agrees to accept the patient at this time. Vital Signs Temperature 98.3 F 05/26/18 12:26 Pulse Rate 78 05/26/18 12:26 Respiratory Rate 20 05/26/18 12:26 Blood Pressure 137/80 05/26/18 12:26 O2 Sat by Pulse Oximetry 94 05/26/18 12:26 Temperature 98.3 F 05/26/18 13:31 Pulse Rate 78 05/26/18 13:31 Respiratory Rate 18 05/26/18 13:42 Blood Pressure 137/80 05/26/18 13:31 O2 Sat by Pulse Oximetry 95 05/26/18 13:42 Oxygen Delivery Oxygen Delivery Room Air Medical Decision Making - Lab Data Result diagrams: 05/26/18 12:59 05/26/18 12:59 Lab Results 05/26/18 05/26/18 05/26/18 Range/Units 12:59 12:59 12:59 WBC 8.8 (4.3-11.1) K/mcL RBC 4.73 (4.19-5.50) M/mcL Hgb 14.7 (12.9-16.9) g/dL Hct 43.5 (37.5-50.1) % MCV 92.0 (83.0-100.0) fL MCH 31.1 (28.0-33.3) pg MCHC 33.8 (31.6-35.5) g/dL RDW 13.7 (11.5-14.5) % Plt Count 129 L (140-400) K/mcL MPV 10.3 (9.4-12.4) fL Immature Gran % 0.3 (0-4) % Seg Neutrophils % 68.6 % Lymphocytes % 19.2 % Monocytes % 8.4 % Eosinophils % 3.2 % Basophils % 0.3 % Neutrophils # 6.0 (1.6-8.9) K/mcL Lymphocytes # 1.7 (0.6-4.6) K/mcL Monocytes # 0.7 (0.0-1.3) K/mcL Eosinophils # 0.3 (0.0-0.6) K/mcL Basophils # 0.0 (0.0-0.2) K/mcL Sodium 139 (136-145) mEq/L Potassium 3.7 (3.5-5.1) mEq/L Chloride 102 (98-107) mEq/L Carbon Dioxide 32 H (23-29) mEq/L BUN 10 (8-23) mg/dL Creatinine 0.83 (0.70-1.30) mg/dL Est GFR ( Amer) > 60 (> 60) Est GFR (Non-Af Amer) > 60 (> 60) BUN/Creatinine Ratio 12 (6-26) Glucose 137 H (70-105) mg/dL Calculated Osmolality 289 (280-300) Lactic Acid 1.3 (0.5-2.2) mmol/L Calcium 9.0 (8.6-10.3) mg/dL Troponin I < 0.03 (< 0.04) ng/mL B-Natriuretic Peptide (Less than 100) pg/mL 05/26/18 Range/Units 12:59 WBC (4.3-11.1) K/mcL RBC (4.19-5.50) M/mcL Hgb (12.9-16.9) g/dL Hct (37.5-50.1) % MCV (83.0-100.0) fL MCH (28.0-33.3) pg MCHC (31.6-35.5) g/dL RDW (11.5-14.5) % Plt Count (140-400) K/mcL MPV (9.4-12.4) fL Immature Gran % (0-4) % Seg Neutrophils % % Lymphocytes % % Monocytes % % Eosinophils % % Basophils % % Neutrophils # (1.6-8.9) K/mcL Lymphocytes # (0.6-4.6) K/mcL Monocytes # (0.0-1.3) K/mcL Eosinophils # (0.0-0.6) K/mcL Basophils # (0.0-0.2) K/mcL Sodium (136-145) mEq/L Potassium (3.5-5.1) mEq/L Chloride (98-107) mEq/L Carbon Dioxide (23-29) mEq/L BUN (8-23) mg/dL Creatinine (0.70-1.30) mg/dL Est GFR ( Amer) (> 60) Est GFR (Non-Af Amer) (> 60) BUN/Creatinine Ratio (6-26) Glucose (70-105) mg/dL Calculated Osmolality (280-300) Lactic Acid (0.5-2.2) mmol/L Calcium (8.6-10.3) mg/dL Troponin I (< 0.04) ng/mL B-Natriuretic Peptide 12 (Less than 100) pg/mL - EKG Data EKG #1 EKG attestation: Yes I reviewed and interpreted this EKG. EKG results narrative: Sinus rhythm. Right bundle branch block. 83 beats for minute. ME interval 129, QRS 148, QTC 408. No sign of acute ST segment elevation or ischemia are to previous EKG completed on 08/31/2017 no significant changes noted
[2018-05-26] MEDS ORDERED: Doxycycline 100 MG in 0.9 % Sodium Chloride Mini Bag 100 ML IVPB ONE (14:04)
--- NOTE | 2018-05-26 14:15 | Emergency Department Note ---
Disposition Clinical Impression: COPD exacerbation Disposition: Admitted As Inpatient Referrals: Lukas Vallecillo MD [Primary Care Provider] - Forms: ED Satisfaction Letter General Adult HPI - General Chief complaint: ED Chest Pain Stated complaint: CP Hx Of Pneumonia Time Seen by Provider: 05/26/18 13:11 Source: patient Mode of arrival: ambulatory Limitations: no limitations - History of Present Illness Pain Scale: 9 - Related Data Home Medications Medication Instructions Recorded Confirmed Albuterol Sulfate [Proair Hfa] 2 puff IH QID PRN 11/17/15 08/30/17 Alprazolam [Xanax] 2 mg PO TID 11/17/15 08/30/17 Albuterol Neb [Proventil Neb] 2.5 mg IH Q4H PRN 08/30/17 08/30/17 Budesonide/Formoterol 160/4.5 2 puff IH BID 08/30/17 08/30/17 [Symbicort 160/4.5] Previous Rx's Medication Instructions Recorded HYDROcodone/Acet 5/325 mg [[place] 1 tab PO Q8HR PRN 4 Days #12 tab 11/03/17 5-325 mg] Clindamycin HCl 450 mg PO TID 7 Days capsule 12/30/17 Cefdinir [Omnicef] 300 mg PO BID #28 capsule 03/08/18 Oxycodone HCl/Acetaminophen 1 each PO Q6HR 3 Days #8 tablet 03/08/18 [Percocet 5-325 mg Tablet] Allergies Allergy/AdvReac Type Severity Reaction Status Date / Time codeine AdvReac Nausea Verified 03/08/18 11:39 Constitutional: Denies: fever, chills, weakness Eyes: Reports: as per HPI ENT ED: Reports: as per HPI Cardiovascular: Reports: dyspnea on exertion. Denies: chest pain, palpitations Respiratory: Reports: cough, dyspnea, wheezes. Denies: hemoptysis, stridor Gastrointestinal: Denies: abdominal pain, nausea, vomiting Genitourinary: Reports: as per HPI Musculoskeletal: Reports: as per HPI Integumentary: Reports: as per HPI Neurological: Denies: weakness, numbness, paresthesias Psychiatric: Reports: as per HPI Endocrine: Reports: as per HPI Hematological/Lymphatic: Reports: as per HPI Allergic/Immunologic: Reports: as per HPI Past Medical History - Past Medical History Medical history: Reports: COPD Surgical history: Reports: other (Lumbar laminectomy) Psychiatric history: Reports: depression - Social History Smoking Status: Current every day smoker Smokeless Tobacco Status: No Alcohol use: Reports: none Drug use: Reports: none Physical Exam - General Limitations: no limitations General appearance: alert, in no apparent distress Course Vital Signs Temperature 98.3 F 05/26/18 12:26 Pulse Rate 78 05/26/18 12:26 Respiratory Rate 20 05/26/18 12:26 Blood Pressure 137/80 05/26/18 12:26 O2 Sat by Pulse Oximetry 94 05/26/18 12:26 Temperature 98.3 F 05/26/18 13:31 Pulse Rate 78 05/26/18 13:31 Respiratory Rate 18 05/26/18 13:42 Blood Pressure 137/80 05/26/18 13:31 O2 Sat by Pulse Oximetry 95 05/26/18 13:42 Oxygen Delivery Oxygen Delivery Room Air Medical Decision Making - Lab Data Result diagrams: 05/26/18 12:59 05/26/18 12:59 Lab Results 05/26/18 05/26/18 05/26/18 Range/Units 12:59 12:59 12:59 WBC 8.8 (4.3-11.1) K/mcL RBC 4.73 (4.19-5.50) M/mcL Hgb 14.7 (12.9-16.9) g/dL Hct 43.5 (37.5-50.1) % MCV 92.0 (83.0-100.0) fL MCH 31.1 (28.0-33.3) pg MCHC 33.8 (31.6-35.5) g/dL RDW 13.7 (11.5-14.5) % Plt Count 129 L (140-400) K/mcL MPV 10.3 (9.4-12.4) fL Immature Gran % 0.3 (0-4) % Seg Neutrophils % 68.6 % Lymphocytes % 19.2 % Monocytes % 8.4 % Eosinophils % 3.2 % Basophils % 0.3 % Neutrophils # 6.0 (1.6-8.9) K/mcL Lymphocytes # 1.7 (0.6-4.6) K/mcL Monocytes # 0.7 (0.0-1.3) K/mcL Eosinophils # 0.3 (0.0-0.6) K/mcL Basophils # 0.0 (0.0-0.2) K/mcL Sodium 139 (136-145) mEq/L Potassium 3.7 (3.5-5.1) mEq/L Chloride 102 (98-107) mEq/L Carbon Dioxide 32 H (23-29) mEq/L BUN 10 (8-23) mg/dL Creatinine 0.83 (0.70-1.30) mg/dL Est GFR ( Amer) > 60 (> 60) Est GFR (Non-Af Amer) > 60 (> 60) BUN/Creatinine Ratio 12 (6-26) Glucose 137 H (70-105) mg/dL Calculated Osmolality 289 (280-300) Lactic Acid 1.3 (0.5-2.2) mmol/L Calcium 9.0 (8.6-10.3) mg/dL Troponin I < 0.03 (< 0.04) ng/mL B-Natriuretic Peptide (Less than 100) pg/mL 05/26/18 Range/Units 12:59 WBC (4.3-11.1) K/mcL RBC (4.19-5.50) M/mcL Hgb (12.9-16.9) g/dL Hct (37.5-50.1) % MCV (83.0-100.0) fL MCH (28.0-33.3) pg MCHC (31.6-35.5) g/dL RDW (11.5-14.5) % Plt Count (140-400) K/mcL MPV (9.4-12.4) fL Immature Gran % (0-4) % Seg Neutrophils % % Lymphocytes % % Monocytes % % Eosinophils % % Basophils % % Neutrophils # (1.6-8.9) K/mcL Lymphocytes # (0.6-4.6) K/mcL Monocytes # (0.0-1.3) K/mcL Eosinophils # (0.0-0.6) K/mcL Basophils # (0.0-0.2) K/mcL Sodium (136-145) mEq/L Potassium (3.5-5.1) mEq/L Chloride (98-107) mEq/L Carbon Dioxide (23-29) mEq/L BUN (8-23) mg/dL Creatinine (0.70-1.30) mg/dL Est GFR ( Amer) (> 60) Est GFR (Non-Af Amer) (> 60) BUN/Creatinine Ratio (6-26) Glucose (70-105) mg/dL Calculated Osmolality (280-300) Lactic Acid (0.5-2.2) mmol/L Calcium (8.6-10.3) mg/dL Troponin I (< 0.04) ng/mL B-Natriuretic Peptide 12 (Less than 100) pg/mL Attestation Statement - Attestation Attestation: I examined this patient and my medical decision-making was reviewed with the Resident Physician. I agree with the documented findings, disposition and treatment plan as described except to the extent set forth below. 62 yo M here for copd exacerbation. no relief at home with nebs. Persistent wheezing. cough. workup in ER is negative. cxr ok ekg ok vss pt still wheezy after duoneb. steroids given. pt also has large abscess to forehead. will do I and D and start pt on antibiotics. doxy. admit pt does not want to go home as he feels too ill.
[2018-05-26] MEDS ORDERED: Naloxone 0.4 MG/ML INJ IVP PRN ×2 (15:42→15:43)
[2018-05-26] MEDS ORDERED: Acetaminophen 325 MG TABLET PO PRN (15:43)
[2018-05-26] MEDS ORDERED: Ipratropium/Albuterol Neb 3 ML IH PRN (15:46)
--- NOTE | 2018-05-26 15:52 | Internal Med History&Physical ---
Date of Encounter: 05/26/18 Time of Encounter: 15:49 Internal Medicine - H&P: HPI Admitted From: Home Plans for Post Hospital Care: Home History of present illness: Mr. Sands is a 62 year old male with significant past medical history of COPD not currently on any oxygen presenting to the emergency department with chief complaint of dyspnea and right-sided lung pain. Patient states he has had worsening shortness of breath and right-sided lung pain for the past 3 days. Denies any fevers. Patient has been using his albuterol nebulizer treatments 4 times a day as prescribed. He states he feels that there is congestion in his lungs but he cannot bring it up. later he reported has been coughed up greenish mucus this morning. Patient became concerned when it was worsening as his last admission was due to similar symptoms and he wanted to be further evaluated. He received breathing treatment at ED, and his sob has improved. CXR did not show any acute changes. He is admitted for further evaluation and treatment. Past Med Surg Social Fam HX - Past Medical History Medical history: COPD Psychiatric history: depression - Past Surgical History Surgical History: other Additional surgical history: back sx - Social History Smoking Status: Current every day smoker Smokeless Tobacco Status: No Alcohol use: none Drug use: none - Family History Father Living Status: Hx Family Cancer: Yes (throat cancer) Mother Living Status: Hx Family Cardiac Disorders: Yes Internal Medicine - H&P: Meds Albuterol Sulfate [Proair Hfa] 2 puff IH QID PRN 11/17/15 [History] Alprazolam [Xanax] 2 mg PO TID 11/17/15 [History] Albuterol Neb [Proventil Neb] 2.5 mg IH Q4H PRN 08/30/17 [History] Budesonide/Formoterol 160/4.5 [Symbicort 160/4.5] 2 puff IH BID 08/30/17 [History] HYDROcodone/Acet 5/325 mg [[place] 5-325 mg] 1 tab PO Q8HR PRN 4 Days #12 tab 11/03/17 [Rx] Clindamycin HCl 450 mg PO TID 7 Days capsule 12/30/17 [Rx] Cefdinir [Omnicef] 300 mg PO BID #28 capsule 03/08/18 [Rx] Oxycodone HCl/Acetaminophen [Percocet 5-325 mg Tablet] 1 each PO Q6HR 3 Days #8 tablet 03/08/18 [Rx] Allergy/AdvReac Type Severity Reaction Status Date / Time codeine AdvReac Nausea Verified 03/08/18 11:39 All Systems PM: A 10-system review of systems was performed and is negative for pertinent findings except as documented above in the HPI. Review of systems: REVIEW OF SYSTEMS: CONSTITUTIONAL: No weight loss, fever, chills, weakness or fatigue. HEENT: Eyes: No visual loss, blurred vision, double vision or yellow sclerae. Ears, Nose, Throat: No hearing loss, sneezing, congestion, runny nose or sore throat. SKIN: No rash or itching. CARDIOVASCULAR: No chest pain, chest pressure or chest discomfort. No pa lpitations or edema. RESPIRATORY: see HPI. GASTROINTESTINAL: No anorexia, nausea, vomiting or diarrhea. No abdominal pain or blood. GENITOURINARY: No dysuria, urgency, or frequency. NEUROLOGICAL: No headache, dizziness, syncope, paralysis, ataxia, numbness or tingling in the extremities. No change in bowel or bladder control. MUSCULOSKELETAL: No muscle, back pain, joint pain or stiffness. HEMATOLOGIC: No anemia, bleeding or bruising. LYMPHATICS: No enlarged nodes. No history of splenectomy. PSYCHIATRIC: No history of depression or anxiety. ENDOCRINOLOGIC: No reports of sweating, cold or heat intolerance. No polyuria or polydipsia. - Constitutional Vitals: Temp Pulse Resp BP Pulse Ox 97.8 F 64 17 116/73 95 05/26/18 15:35 05/26/18 15:35 05/26/18 15:35 05/26/18 15:35 05/26/18 15:35 General appearance: Present: cooperative, A&O X 3, answers questions appropriately Exam: PHYSICAL EXAMINATION: GENERAL APPEARANCE: The patient is alert, oriented and in no acute distress. HEENT: Head is normocephalic. The sinuses are nontender. Pupils are equal and reactive. The nares are patent. Oropharynx clear without lesions. NECK: Supple without lymphadenopathy. HEART: Regular rate and rhythm. LUNGS: diffuse wheezes are heard on both sides. ABDOMEN: Soft, nontender, nondistended with good bowel sounds heard. Inguinal area is normal. EXTREMITIES: Without cyanosis, clubbing or edema. NEUROLOGICAL: Gross nonfocal. SKIN: Warm and dry without any rash. Internal Med - H&P Results - Labs CBC & Chem 7: 05/26/18 12:59 05/26/18 12:59 Labs: Short CBC 05/26/18 Range/Units 12:59 WBC 8.8 (4.3-11.1) K/mcL Hgb 14.7 (12.9-16.9) g/dL Hct 43.5 (37.5-50.1) % Plt Count 129 L (140-400) K/mcL Neutrophils # 6.0 (1.6-8.9) K/mcL BMP 05/26/18 12:59 Sodium 139 Potassium 3.7 Chloride 102 Carbon Dioxide 32 H BUN 10 Creatinine 0.83 Glucose 137 H Calcium 9.0 Cardiac Enzymes 05/26/18 Range/Units 12:59 Troponin I < 0.03 (< 0.04) ng/mL - Impressions ITS Impressions Chest X-Ray 05/26/18 12:36 IMPRESSION: No acute process. D/ / Humberto Winter MD / Humberto Winter MD Interpreting Provider: Humberto Winter MD - Assessment and plan (1) COPD exacerbation Current Visit: Yes Status: Acute Assessment and plan: 62 year old COPDer presented with worsening sob and cough. CXR negative for infiltrates. Diffuse wheezing and rhonchi on physical. Likely had a recent URI/acute bronchitis. - pending sputum cx. empirically treated with Doxycycline for bronchitis. - continue home Symbicort. started pt on IV steroid and short-acting bronchodilator. - encourage using IS and ambulating. (2) Anxiety Current Visit: No Status: Chronic Assessment and plan: continue home meds. (3) Boil Current Visit: Yes Status: Acute Assessment and plan: A boil noted at the forehead. consult general surgery. (4) DVT prophylaxis Current Visit: Yes Status: Acute Assessment and plan: heparin sq. - Time Spent With Patient Total time spent is greater than 50% in coordination of care (as documented) at patient's floor/unit and/or counseling patient: Greater than 35 minutes
[2018-05-26] MEDS: Ipratropium/Albuterol Neb 3 ML IH SCH ×2 (16:40→20:18)
[2018-05-26] MEDS: traMADol 50 MG TABLET PO PRN (17:28)
[2018-05-26] MEDS: *HR* Heparin 5,000 UNIT/ML VIAL SQ SCH (17:28)
[2018-05-26] MEDS: Budesonide/Formoterol 160/4.5 1 PUFF INH IH SCH (20:18)
[2018-05-26] MEDS: MethylPREDNISolone 40 MG/ML VIAL IVP SCH (21:06)
[2018-05-26] MEDS: Doxycycline 100 MG CAPSULE PO SCH (21:06)
[2018-05-26] MEDS: ALPRAZolam 1 MG TABLET PO PRN (21:53)
[2018-05-27] MEDS: Ipratropium/Albuterol Neb 3 ML IH SCH ×4 (00:30→11:30)
[2018-05-27 05:10] LABS: Eosinophils % 0.1 %; Hematocrit 41.4 % (37.5-50.1); Hemoglobin 13.8 g/dL (12.9-16.9); Immature Granulocytes % 0.3 % (0-4); Lymphocytes # 0.7 K/mcL (0.6-4.6); Lymphocytes % 5.6 %; Mean Corpuscular HGB Conc 33.3 g/dL (31.6-35.5); Mean Corpuscular Hemoglobin 30.6 pg (28.0-33.3); Mean Corpuscular Volume 91.8 fL (83.0-100.0); Mean Platelet Volume 10.9 fL (9.4-12.4); Monocytes # 0.2 K/mcL (0.0-1.3); Neutrophils # 10.7 K/mcL (1.6-8.9); Platelet Count 124 K/mcL (140-400); Red Blood Count 4.51 M/mcL (4.19-5.50); Red Cell Distribution Width 13.3 % (11.5-14.5)
[2018-05-27 05:31] LABS: BUN/Creatinine Ratio 16 (6-26); Blood Urea Nitrogen 13 mg/dL (8-23); Calcium 9.4 mg/dL (8.6-10.3); Carbon Dioxide 27 mEq/L (23-29); Chloride 102 mEq/L (98-107); Glucose 173 mg/dL (70-105); Osmolality,Calculated 292 (280-300); Potassium 3.5 mEq/L (3.5-5.1); Sodium 139 mEq/L (136-145); eGFR For Non-African Americans > 60 (> 60)
[2018-05-27] MEDS: MethylPREDNISolone 40 MG/ML VIAL IVP SCH (05:33)
[2018-05-27] MEDS: *HR* Heparin 5,000 UNIT/ML VIAL SQ SCH (05:33)
[2018-05-27 07:32] VITALS: BP 119/69
[2018-05-27] MEDS: Budesonide/Formoterol 160/4.5 1 PUFF INH IH SCH (07:46)
[2018-05-27] MEDS: traMADol 50 MG TABLET PO PRN (08:38)
[2018-05-27] MEDS: Doxycycline 100 MG CAPSULE PO SCH (08:39)
[2018-05-27] MEDS: ALPRAZolam 1 MG TABLET PO PRN (08:39)
--- NOTE | 2018-05-27 11:07 | Internal Med Progress Note ---
Hospitalist Progress Note - Encounter Date of Encounter: 05/27/18 Time of Encounter: 11:05 - Subjective Interval History: Patient seen and examined in room, he reported chest congestion and a dry cough overnight, he also complained not receiving Xanax yesterday. Otherwise, he has no fever, chest pain, hemoptysis. - Exam Vitals: Temp Pulse Resp BP Pulse Ox 97.9 F 89 16 119/69 92 05/27/18 07:31 05/27/18 07:31 05/27/18 07:31 05/27/18 07:31 05/27/18 07:31 Exam: PHYSICAL EXAMINATION: GENERAL APPEARANCE: The patient is alert, oriented and in no acute distress. HEENT: Head is normocephalic. The sinuses are nontender. Pupils are equal and reactive. The nares are patent. Oropharynx clear without lesions. NECK: Supple without lymphadenopathy. HEART: Regular rate and rhythm. LUNGS: diffuse wheezes are heard on both sides. ABDOMEN: Soft, nontender, nondistended with good bowel sounds heard. Inguinal area is normal. EXTREMITIES: Without cyanosis, clubbing or edema. NEUROLOGICAL: Gross nonfocal. SKIN: Warm and dry without any rash. - Assessment and Plan (1) COPD exacerbation Current Visit: Yes Status: Acute Assessment and Plan: 62 year old COPDer presented with worsening sob and cough. CXR negative for infiltrates. Diffuse wheezing and rhonchi on physical. Likely had a recent URI/acute bronchitis. - pending sputum cx. empirically treated with Doxycycline for bronchitis. - continue home Symbicort. Continue IV steroid and short-acting bronchodilator. - encourage using IS and ambulating. (2) Anxiety Current Visit: No Status: Chronic Assessment and Plan: continue home meds. (3) Boil Current Visit: Yes Status: Acute Assessment and Plan: A boil noted at the forehead. consult ENT. (4) DVT prophylaxis Current Visit: Yes Status: Acute Assessment and Plan: heparin sq. - Time Spent with Patient Total time spent is greater than 50% in coordination of care (as documented) at patient's floor/unit and/or counseling patient: Greater than 35 minutes Plan of Care Discussed with: patient Internal Medicine: Result - Labs CBC & Chem 7: 05/27/18 04:41 05/27/18 04:41 Labs: Short CBC 05/26/18 05/27/18 Range/Units 12:59 04:41 WBC 8.8 11.6 H (4.3-11.1) K/mcL Hgb 14.7 13.8 (12.9-16.9) g/dL Hct 43.5 41.4 (37.5-50.1) % Plt Count 129 L 124 L (140-400) K/mcL Neutrophils # 6.0 10.7 H (1.6-8.9) K/mcL BMP 05/26/18 05/27/18 12:59 04:41 Sodium 139 139 Potassium 3.7 3.5 Chloride 102 102 Carbon Dioxide 32 H 27 BUN 10 13 Creatinine 0.83 0.83 Glucose 137 H 173 H Calcium 9.0 9.4 Cardiac Enzymes 05/26/18 Range/Units 12:59 Troponin I < 0.03 (< 0.04) ng/mL - Impressions Impressions Chest X-Ray 05/26/18 12:36 IMPRESSION: No acute process. D/ / Humberto Winter MD / Humberto Winter MD Interpreting Provider: Humberto Winter MD Consult Discharge Plan - Plan Referrals: Lukas Vallecillo MD [Primary Care Provider] - (Your appointment has been requested. Our offices will call you with a date and time.)
--- NOTE | 2018-05-27 16:12 | Event Note ---
Date of Encounter: 05/27/18 Time of Encounter: 16:11 Patient eloped out of the hospital without notice hospital staff.
--- NOTE | 2018-05-27 17:19 | Electrocardiograph Report ---
[address] [place], [place] [address] Test Date: 2018-05-26 Pat Name: Trey Sands Department: [id number] Room: 3B16 Gender: M Design Engineer: CLAUDIA : [id number] Requested By: Serjio Winter Order Number: [id number] Reading MD: Martine Damon Measurements Intervals [place] Rate: 83 P: 73 W[place]: 129 QRS: 97 QRSD: 148 T: 33 QT: 368 QTc: 408 Interpretive Statements SINUS RHYTHM RIGHT BUNDLE BRANCH BLOCK Electronically Signed On 05-27-2018 17:17:30 EST by Martine Damon
== END 2018-05-27 13:45 | disposition left against medical advice (07) ==
LOC: EMEROOARM 12:25 → 3BNU 12:25
PROVIDERS: ADMIT Internal Medicine; ATTEND Internal Medicine

== ENCOUNTER 2020-01-28 12:34 | Observation (INO) ==
[2020-01-28] MEDS ORDERED: 0.9 % Sodium Chloride 1,000 ML IVC ONE (12:45)
[2020-01-28] MEDS ORDERED: 0.9 % Sodium Chloride 1,000 ML ONE (13:08)
[2020-01-28 13:19] LABS: Basophils % 0.2 %; Eosinophils # 0.1 K/mcL (0.0-0.6); Eosinophils % 1.2 %; Hematocrit 39.4 % (37.5-50.1); Immature Granulocytes % 0.4 % (0-4); Immature Platelets 6.8 % (1.1-6.1); Lymphocytes # 1.9 K/mcL (0.6-4.6); Lymphocytes % 18.4 %; Mean Corpuscular Hemoglobin 31.6 pg (28.0-33.3); Mean Corpuscular Volume 95.9 fL (83.0-100.0); Monocytes # 1.3 K/mcL (0.0-1.3); Monocytes % 12.4 %; Neutrophils # 7.1 K/mcL (1.6-8.9); Platelet Count 135 K/mcL (140-400); Red Blood Count 4.11 M/mcL (4.19-5.50); Red Cell Distribution Width 13.8 % (11.5-14.5); Segmented Neutrophils % 67.4 %; White Blood Count 10.5 K/mcL (4.3-11.1)
[2020-01-28 13:23] LABS: INR 1.1
[2020-01-28 13:26] LABS: Activated Partial Thrombo Time 24.8 Seconds (26.0-36.0)
[2020-01-28] MEDS ORDERED: Isovue-370 500 ML BOTTLE IVP ONE (13:26)
[2020-01-28] MEDS ORDERED: Fluorescein Sodium STRIP OP ONE ×2 (13:32→14:30)
[2020-01-28] MEDS ORDERED: Tetracaine 0.5% OPTH 80 DROP/4 ML BOTTLE RIGHT EYE ONE (13:38)
[2020-01-28] MEDS ORDERED: Tetracaine 0.5% OPTH 80 DROP/4 ML BOTTLE LEFT EYE ONE (13:38)
[2020-01-28 13:39] LABS: Alanine Aminotransferase 14 Units/L (7-52); Albumin 3.8 g/dL (3.5-5.7); Albumin/Globulin Ratio 1.4 (1.1-2.2); Alkaline Phosphatase 65 Units/L (34-104); Aspartate Amino Transferase 25 Units/L (13-39); BUN/Creatinine Ratio 16 (6-26); Bilirubin,Direct 0.1 mg/dL (0.0-0.2); Bilirubin,Indirect 0.4 mg/dL (0.0-1.0); Bilirubin,Total 0.5 mg/dL (0.3-1.0); Blood Urea Nitrogen 16 mg/dL (8-23); Calcium 8.7 mg/dL (8.6-10.3); Carbon Dioxide 30 mEq/L (23-29); Chloride 99 mEq/L (98-107); Creatine Kinase 359 Units/L (30-223); Ethanol < 10 mg/dL (Less than 10); Globulin 2.7 g/dL (2.4-3.5); Glucose 113 mg/dL (70-105); Lipase 10 Units/L (11-82); Osmolality,Calculated 282 (280-300); Sodium 135 mEq/L (136-145); Total Protein 6.5 g/dL (6.4-8.9); Troponin I < 0.03 ng/mL (< 0.04); eGFR For African Americans > 60 (> 60); eGFR For Non-African Americans > 60 (> 60)
[2020-01-28 14:27] LABS: Bilirubin,Urine Negative (Negative); Blood,Urine Negative (Negative); Clarity,Urine Clear (Clear); Color,Urine Light-Yellow (Yellow); Glucose,Urine (UA) Normal (Normal); Ketones,Urine Negative (Negative); Leukocyte Esterase,Urine Moderate (Negative); Mucus,Urine Few per lpf (None-Few); Nitrite,Urine Negative (Negative); Protein,Urine Trace mg/dL (Neg-Trace); Specific Gravity,Urine 1.012 (1.010-1.025); Urobilinogen,Urine Normal (Normal); WBC,Urine 15-30 per hpf (0-3)
[2020-01-28] MEDS ORDERED: Tetracaine 0.5% OPTH 80 DROP/4 ML BOTTLE BOTH EYES ONE (14:30)
[2020-01-28 14:44] LABS: Amphetamine Screen,Urine Negative ng/mL (Cutoff=1000); Barbiturate Screen,Urine Negative ng/mL (Cutoff=200); Benzodiazepines Screen,Urine Positive ng/mL (Cutoff=200); Cannabinoid Screen,Urine Negative ng/mL (Cutoff = 50); Cocaine Screen,Urine Negative ng/mL (Cutoff= 300); Opiate Screen,Urine Negative ng/mL (Cutoff=300); Phencyclidine Screen,Urine Negative ng/mL (Cutoff=25)
[2020-01-28] MEDS ORDERED: Naloxone 0.4 MG/ML INJ IVP PRN (17:35)
[2020-01-28] MEDS ORDERED: Acetaminophen 325 MG TABLET PO PRN (17:35)
[2020-01-28] MEDS ORDERED: Ibuprofen 400 MG TABLET PO PRN (17:35)
[2020-01-28] MEDS ORDERED: Albuterol 2.5 MG/3 ML NEBULIZER IH PRN (17:40)
[2020-01-28] MEDS ORDERED: Perflutren Lipid Microsphere 1.3 ML in 0.9 % Sodium Chloride 8.7 ML IVP PRN (17:58)
[2020-01-28] MEDS: 0.9 % Sodium Chloride 1,000 ML IVC SCH (18:08)
[2020-01-28] MEDS: *HR* Heparin 5,000 UNIT/ML VIAL SQ SCH (18:26)
[2020-01-28 18:58] LABS: Prostate Specific Antigen 44.26 ng/mL (Less than 4.00)
[2020-01-28 19:40] LABS: Hepatitis B Surface Antigen Nonreactive (Nonreactive)
[2020-01-28 20:10] LABS: Hepatitis A Antibody IgM Nonreactive (Nonreactive); Hepatitis B Core IgM Nonreactive (Nonreactive)
[2020-01-28 20:14] LABS: HIV-1&2 Antibody & p24 Ag Nonreactive (Nonreactive)
[2020-01-28] MEDS ORDERED: hydrOXYzine pamoate 25 MG CAPSULE PO PRN (20:50)
[2020-01-28 21:23] LABS: Hepatitis C Virus Antibody Reactive (Nonreactive)
[2020-01-28] MEDS: Budesonide/Formoterol 80/4.5 1 PUFF INH IH SCH (22:16)
[2020-01-29 02:42] LABS: Hematocrit 35.8 % (37.5-50.1); Hemoglobin 11.5 g/dL (12.9-16.9); Immature Platelets 7.9 % (1.1-6.1); Mean Corpuscular HGB Conc 32.1 g/dL (31.6-35.5); Mean Corpuscular Hemoglobin 30.3 pg (28.0-33.3); Mean Corpuscular Volume 94.5 fL (83.0-100.0); Red Blood Count 3.79 M/mcL (4.19-5.50); Red Cell Distribution Width 13.9 % (11.5-14.5); White Blood Count 6.8 K/mcL (4.3-11.1)
[2020-01-29 03:01] LABS: BUN/Creatinine Ratio 14 (6-26); Blood Urea Nitrogen 13 mg/dL (8-23); Calcium 8.2 mg/dL (8.6-10.3); Carbon Dioxide 27 mEq/L (23-29); Chloride 104 mEq/L (98-107); Glucose 108 mg/dL (70-105); Osmolality,Calculated 285 (280-300); Phosphorous 2.7 mg/dL (2.7-4.5); Potassium 3.8 mEq/L (3.5-5.1); Sodium 137 mEq/L (136-145); eGFR For African Americans > 60 (> 60); eGFR For Non-African Americans > 60 (> 60)
[2020-01-29] MEDS: *HR* Heparin 5,000 UNIT/ML VIAL SQ SCH (05:00)
[2020-01-29] MEDS: Budesonide/Formoterol 80/4.5 1 PUFF INH IH SCH (07:36)
[2020-01-29] MEDS: 0.9 % Sodium Chloride 1,000 ML IVC SCH (08:13)
[2020-01-29 11:47] VITALS: BP 119/70
== END 2020-01-29 14:55 | disposition home or self-care (01) ==
LOC: 3BNU 12:34 → EMEROOARM 12:34 → 3BNU 16:47
PROVIDERS: ADMIT Internal Medicine; ATTEND Internal Medicine

== ENCOUNTER 2020-05-09 17:08 | Observation (INO) ==
[2020-05-09] MEDS ORDERED: Ipratropium/Albuterol Neb 3 ML IH ONE (17:50)
[2020-05-09] MEDS ORDERED: Aspirin 325 MG TABLET PO ONE (17:50)
[2020-05-09 18:39] LABS: Basophils % 0.2 %; Eosinophils % 0.1 %; Hematocrit 39.6 % (37.5-50.1); Hemoglobin 13.3 g/dL (12.9-16.9); Immature Granulocytes % 0.5 % (0-4); Lymphocytes # 2.2 K/mcL (0.6-4.6); Lymphocytes % 16.9 %; Mean Corpuscular HGB Conc 33.6 g/dL (31.6-35.5); Mean Corpuscular Hemoglobin 31.5 pg (28.0-33.3); Mean Corpuscular Volume 93.8 fL (83.0-100.0); Mean Platelet Volume 10.8 fL (9.4-12.4); Monocytes # 1.3 K/mcL (0.0-1.3); Monocytes % 9.9 %; Neutrophils # 9.3 K/mcL (1.6-8.9); Platelet Count 165 K/mcL (140-400); Red Blood Count 4.22 M/mcL (4.19-5.50); Red Cell Distribution Width 13.6 % (11.5-14.5); Segmented Neutrophils % 72.4 %; White Blood Count 12.8 K/mcL (4.3-11.1)
[2020-05-09 18:56] LABS: BUN/Creatinine Ratio 13 (6-26); Blood Urea Nitrogen 15 mg/dL (8-23); Calcium 8.9 mg/dL (8.6-10.3); Carbon Dioxide 23 mEq/L (23-29); Chloride 107 mEq/L (98-107); Glucose 117 mg/dL (70-105); Osmolality,Calculated 288 (280-300); Potassium 3.7 mEq/L (3.5-5.1); Sodium 138 mEq/L (136-145); Troponin I < 0.03 ng/mL (< 0.04); eGFR For African Americans > 60 (> 60); eGFR For Non-African Americans > 60 (> 60)
[2020-05-09] MEDS ORDERED: Naloxone 0.4 MG/ML INJ IVP PRN (19:45)
[2020-05-09] MEDS ORDERED: Ondansetron 4 MG/2 ML VIAL IVP PRN (19:45)
[2020-05-09] MEDS ORDERED: Ipratropium/Albuterol Neb 3 ML IH PRN (22:47)
[2020-05-09] MEDS: MethylPREDNISolone 40 MG/ML VIAL IVP SCH (23:39)
[2020-05-09] MEDS: Doxycycline 100 MG in 0.9 % Sodium Chloride Mini Bag 100 ML IVPB SCH (23:39)
[2020-05-10] MEDS: Ipratropium/Albuterol Neb 3 ML IH SCH ×3 (00:25→07:29)
[2020-05-10 00:27] LABS: Prothrombin Time 11.9 Seconds (9.4-12.1)
[2020-05-10 00:41] LABS: Basophils % 0.2 %; Eosinophils # 0.1 K/mcL (0.0-0.6); Eosinophils % 0.5 %; Hematocrit 39.5 % (37.5-50.1); Hemoglobin 13.3 g/dL (12.9-16.9); Immature Granulocytes % 0.3 % (0-4); Lymphocytes # 3.3 K/mcL (0.6-4.6); Lymphocytes % 25.6 %; Mean Corpuscular HGB Conc 33.7 g/dL (31.6-35.5); Mean Corpuscular Hemoglobin 31.5 pg (28.0-33.3); Mean Corpuscular Volume 93.6 fL (83.0-100.0); Mean Platelet Volume 10.7 fL (9.4-12.4); Monocytes # 1.2 K/mcL (0.0-1.3); Monocytes % 9.5 %; Neutrophils # 8.2 K/mcL (1.6-8.9); Platelet Count 172 K/mcL (140-400); Red Blood Count 4.22 M/mcL (4.19-5.50); Red Cell Distribution Width 13.7 % (11.5-14.5); Segmented Neutrophils % 63.9 %; White Blood Count 12.8 K/mcL (4.3-11.1)
[2020-05-10] MEDS ORDERED: Nicotine 21 MG PATCH.TD24 TD SCH (00:45)
[2020-05-10 00:51] LABS: BUN/Creatinine Ratio 13 (6-26); Blood Urea Nitrogen 15 mg/dL (8-23); Calcium 8.9 mg/dL (8.6-10.3); Carbon Dioxide 28 mEq/L (23-29); Chloride 107 mEq/L (98-107); Chol/HDL Ratio 3.4 (0-4.9); Cholesterol 158 mg/dL (< 200); Glucose 98 mg/dL (70-105); HDL Cholesterol 47 mg/dL (40-59); LDL Cholesterol,Calculated 93 mg/dL (< 100); Magnesium 1.8 mg/dL (1.6-2.6); Osmolality,Calculated 293 (280-300); Potassium 3.3 mEq/L (3.5-5.1); Sodium 141 mEq/L (136-145); Triglycerides 91 mg/dL (< 150); eGFR For African Americans > 60 (> 60); eGFR For Non-African Americans > 60 (> 60)
[2020-05-10 01:01] LABS: Adenovirus Not Detected (Not Detect); Bordetella Pertussis Not Detected (Not Detect); Chlamydophila pneumoniae Not Detected (Not Detect); Coronavirus 229E Not Detected (Not Detect); Coronavirus HKU1 Not Detected (Not Detect); Coronavirus NL63 Not Detected (Not Detect); Coronavirus OC43 Not Detected (Not Detect); Human Metapneumovirus Not Detected (Not Detect); Human Rhinovirus/Enterovirus Not Detected (Not Detect); Influenza A Subtype 2009 H1 Not Detected (Not Detect); Influenza B Not Detected (Not Detect); Mycoplasma pneumoniae Not Detected (Not Detect); Parainfluenza Virus 1 Not Detected (Not Detect); Parainfluenza Virus 2 Not Detected (Not Detect); Parainfluenza Virus 3 Not Detected (Not Detect); Parainfluenza Virus 4 Not Detected (Not Detect); Respiratory Syncytial Virus Not Detected (Not Detect); SARS-CoV-2 Not Detected (Not Detect)
[2020-05-10] MEDS ORDERED: Acetaminophen 325 MG TABLET PO PRN (05:42)
[2020-05-10] MEDS ORDERED: *HR* Enoxaparin 40 MG/0.4 ML SYRINGE SQ SCH (06:00)
[2020-05-10] MEDS: MethylPREDNISolone 40 MG/ML VIAL IVP SCH (08:07)
[2020-05-10] MEDS: Doxycycline 100 MG in 0.9 % Sodium Chloride Mini Bag 100 ML IVPB SCH (08:07)
[2020-05-10 10:01] VITALS: BP 146/78
== END 2020-05-10 10:15 | disposition home or self-care (01) ==
LOC: 3BNU 17:08 → EMEROOARM 17:08 → SUATTDRO 19:24 → 3BNU 19:45
PROVIDERS: ADMIT Internal Medicine; ATTEND Internal Medicine

== ENCOUNTER 2021-04-22 09:02 | Observation (INO) ==
[2021-04-22] MEDS ORDERED: Isovue-370 500 ML BOTTLE IVP ONE (09:29)
[2021-04-22 10:09] LABS: Hematocrit 43.3 % (37.5-50.1); Immature Platelets 4.6 % (1.1-6.1); Mean Corpuscular HGB Conc 32.3 g/dL (31.6-35.5); Mean Platelet Volume 10.3 fL (9.4-12.4); Red Blood Count 4.51 M/mcL (4.19-5.50); Red Cell Distribution Width 12.8 % (11.5-14.5); White Blood Count 6.5 K/mcL (4.3-11.1)
[2021-04-22 10:10] LABS: INR 1.1
[2021-04-22 10:13] LABS: Activated Partial Thrombo Time 31.5 Seconds (26.0-36.0)
[2021-04-22 11:30] LABS: BUN/Creatinine Ratio 7 (6-26); Blood Urea Nitrogen 9 mg/dL (8-23); Carbon Dioxide 23 mEq/L (23-29); Chloride 101 mEq/L (98-107); Glucose 105 mg/dL (70-105); Osmolality,Calculated 285 (280-300); Potassium 4.1 mEq/L (3.5-5.1); Sodium 138 mEq/L (136-145); Troponin I < 0.03 ng/mL (< 0.04); eGFR For African Americans > 60 (> 60); eGFR For Non-African Americans 53 (> 60)
[2021-04-22] MEDS ORDERED: Acetaminophen 325 MG TABLET PO PRN (13:37)
[2021-04-22] MEDS ORDERED: Ondansetron 4 MG/2 ML VIAL IVP PRN (13:37)
[2021-04-22] MEDS ORDERED: Naloxone 0.4 MG/ML INJ IVP PRN (13:37)
[2021-04-22] MEDS ORDERED: Ipratropium/Albuterol Neb 3 ML IH PRN (16:50)
[2021-04-22] MEDS: Chlorhexidine Rinse 15 ML MOUTHWASH MM SCH (20:21)
[2021-04-22] MEDS: Famotidine 20 MG TABLET PO SCH (20:21)
[2021-04-22] MEDS: ALPRAZolam 1 MG TABLET PO SCH (20:21)
[2021-04-23 05:06] LABS: Mean Platelet Volume 10.9 fL (9.4-12.4); Red Cell Distribution Width 12.9 % (11.5-14.5); Segmented Neutrophils % 45.2 %
[2021-04-23 05:08] LABS: Basophils % 0.5 %; Eosinophils # 0.4 K/mcL (0.0-0.6); Eosinophils % 7.1 %; Hematocrit 40.7 % (37.5-50.1); Hemoglobin 13.4 g/dL (12.9-16.9); Immature Granulocytes % 0.2 % (0-4); Immature Platelets 5.3 % (1.1-6.1); Lymphocytes # 1.9 K/mcL (0.6-4.6); Lymphocytes % 33.3 %; Mean Corpuscular HGB Conc 32.9 g/dL (31.6-35.5); Mean Corpuscular Hemoglobin 31.2 pg (28.0-33.3); Mean Corpuscular Volume 94.9 fL (83.0-100.0); Monocytes # 0.8 K/mcL (0.0-1.3); Monocytes % 13.7 %; Platelet Count 117 K/mcL (140-400); Red Blood Count 4.29 M/mcL (4.19-5.50); White Blood Count 5.6 K/mcL (4.3-11.1)
[2021-04-23 05:13] LABS: Neutrophils # 2.5 K/mcL (1.6-8.9)
[2021-04-23 05:20] LABS: Chol/HDL Ratio 4.3 (0-4.9)
[2021-04-23 05:21] LABS: Albumin 3.6 g/dL (3.5-5.7); Albumin/Globulin Ratio 1.6 (1.1-2.2); Bilirubin,Indirect 0.3 mg/dL (0.0-1.0); Bilirubin,Total 0.3 mg/dL (0.3-1.0); Globulin 2.3 g/dL (2.4-3.5); Total Protein 5.9 g/dL (6.4-8.9)
[2021-04-23 05:23] LABS: BUN/Creatinine Ratio 11 (6-26); Blood Urea Nitrogen 15 mg/dL (8-23); Calcium 9.1 mg/dL (8.6-10.3); Carbon Dioxide 32 mEq/L (23-29); Chloride 101 mEq/L (98-107); Glucose 98 mg/dL (70-105); Magnesium 1.8 mg/dL (1.6-2.6); Osmolality,Calculated 285 (280-300); Potassium 4.3 mEq/L (3.5-5.1); Sodium 137 mEq/L (136-145); eGFR For African Americans > 60 (> 60); eGFR For Non-African Americans 53 (> 60)
[2021-04-23 05:41] LABS: Estimated Average Glucose 117 mg/dl; Hemoglobin A1C 5.7 %
[2021-04-23 05:47] LABS: Folate 17.6 ng/mL (3.0-16.0)
[2021-04-23] MEDS ORDERED: *HR* Enoxaparin 40 MG/0.4 ML SYRINGE SQ SCH (07:00)
[2021-04-23] MEDS: Famotidine 20 MG TABLET PO SCH (07:50)
[2021-04-23] MEDS: Chlorhexidine Rinse 15 ML MOUTHWASH MM SCH (07:50)
[2021-04-23] MEDS: ALPRAZolam 1 MG TABLET PO SCH (07:50)
[2021-04-23] MEDS ORDERED: Nicotine 14 MG PATCH.TD24 TD SCH (09:00)
[2021-04-23] MEDS ORDERED: Perflutren Lipid Microsphere 1.3 ML in 0.9 % Sodium Chloride 8.7 ML IVP PRN (10:39)
[2021-04-23] MEDS ORDERED: Aspirin Enteric Coated 81 MG Tablet PO SCH (10:45)
[2021-04-23] MEDS ORDERED: predniSONE 20 MG TABLET PO SCH (10:45)
[2021-04-23] MEDS ORDERED: valACYclovir 500 MG TABLET PO SCH (11:00)
[2021-04-23 11:35] VITALS: BP 128/71; PULSE 80; TEMP 98.4; O2SAT 89
[2021-04-24] MEDS ORDERED: Famotidine 20 MG TABLET PO SCH (09:00)
== END 2021-04-23 13:47 | disposition home or self-care (01) ==
LOC: EMEROOARM 09:02 → 3ANU 09:02 → SUATTDRO 13:27 → 3ANU 15:35
PROVIDERS: ADMIT Pharmacist; ATTEND Internal Medicine